=== PATIENT | male | born 1960 | race Hispanic/Latino ===

== ENCOUNTER 2022-03-12 08:09 | Emergency (ER) | payer OTHER, MEDICARE ==
[2022-03-12] MEDS ORDERED: ACETAMINOPHEN 500 MG TABLET PO STA (08:36)
[2022-03-12 09:23] VITALS: BP 189/107
[2022-03-12] MEDS ORDERED: AMOX1TAB16 PO (09:30)
== END 2022-03-12 09:38 | disposition home or self-care (01) ==
LOC: EDH 08:09
DX: J32.9 Chronic sinusitis, unspecified (principal); I10 Essential (primary) hypertension; J44.9 Chronic obstructive pulmonary disease, unspecified; Z20.822 Contact with and (suspected) exposure to COVID-19
CPT/HCPCS: 99283; 87635; 87804 ×2; C9803

== ENCOUNTER → 2022-04-01 | Emergency (ER) | payer OTHER, MEDICARE ==
[~2022-04-01] VITALS: Ht 175.3 cm; Wt 68.0 kg
[~2022-04-01] MED LIST: AMOX1TAB16 PO
[2022-04-01 21:52] VITALS: BP 142/88
== END ==
LOC: EDH 21:28
DX: M54.2 Cervicalgia (principal); Z53.21 Procedure and treatment not carried out due to patient leaving prior to being seen by health care provider